=== PATIENT | female | born 1960 | race Caucasian/White ===

== ENCOUNTER → 2019-02-10 | Outpatient (CLI) | payer OTHER ==
[2019-02-10 13:35] LABS: BASOPHILS ABSOLUTE AUTO 0.03 K/mm3 (0.00-0.23); BASOPHILS PERCENT AUTO 0 % (0-2); EOSINOPHILS ABSOLUTE AUTO 0.06 K/mm3 (0.00-0.68); EOSINOPHILS PERCENT AUTO 1 % (0-6); Hematocrit 46.2 % (33.0-51.0); Hemoglobin 15.1 g/dL (11.5-16.0); IMMATURE GRAN ABSOLUTE AUTO 0.04 K/mm3 (0.00-0.10); IMMATURE GRAN PERCENT AUTO 1 % (0-1); LYMPHOCYTES ABSOLUTE AUTO 0.88 K/mm3 (0.84-5.20); LYMPHOCYTES PERCENT AUTO 10 % (21-46); MONOCYTES ABSOLUTE AUTO 0.48 K/mm3 (0.16-1.47); MONOCYTES PERCENT AUTO 6 % (4-13); Mean Corpuscular HGB 29.1 pg (26.0-34.0); Mean Corpuscular HGB Conc 32.7 g/dL (31.5-36.5); Mean Corpuscular Volume 89 fL (80-100); Mean Platelet Volume 9.8 fL (9.1-12.4); NEUTROPHILS ABSOLUTE AUTO 7.16 K/mm3 (1.96-9.15); NEUTROPHILS PERCENT AUTO 83 % (41-73); Platelet Count 238 K/mm3 (150-400); RDW Coefficient Variation 14.4 % (11.7-14.2); RDW Standard Deviation 46.5 fL (35.1-46.3); Red Blood Cell Count 5.19 M/mm3 (3.80-5.20); White Blood Cell Count 8.65 K/mm3 (4.00-11.30)
[2019-02-10 13:58] LABS: Alanine Aminotransfer (ALT/SGP 15 U/L (12-78); Albumin, Blood 3.9 g/dL (3.4-5.0); Alk Phos 93 U/L (40-126); Anion Gap 8 mmol/L (6-16); Aspartate Aminotrans (AST/SGOT 16 U/L (12-37); Bilirubin, Total 0.5 mg/dL (0.1-1.0); Blood Urea Nitrogen 15 mg/dL (8-24); Bun/Creatinine Ratio 16.1 (12.0-20.0); CO2, Blood 26 mmol/L (21-32); Calcium, Blood 9.4 mg/dL (8.5-10.1); Chloride, Blood 106 mmol/L (98-108); Creatinine, Blood 0.93 mg/dL (0.40-1.00); Globulin, Blood 3.8 g/dL (2.2-4.0); Glomerular Filtration Rate >60 (60-); Glucose, Blood 98 mg/dL (70-99); Potassium, Blood 3.9 mmol/L (3.5-5.5); Sodium, Blood 140 mmol/L (136-145); Thyroid Stimulating Hormone 1.535 uIU/mL (0.360-4.800); Total Protein, Blood 7.7 g/dL (6.4-8.2)
== END ==
LOC: LAB EV 13:27 → LAB SHORT 13:27
PROVIDERS: Family Medicine
DX: R00.2 Palpitations (principal)
CPT/HCPCS: 80053; 84443; 85025

== ENCOUNTER → 2025-02-20 | Outpatient (CLI) | payer MEDICARE | LOC: LAB 15:46 → LAB SHORT 15:46 | DX: N39.0 Urinary tract infection, site not specified (principal) | CPT/HCPCS: 87077; 87086; 87186 ==

== ENCOUNTER 2025-04-11 21:49 | Inpatient (IN) | payer MEDICARE, OTHER ==
[~2025-04-11] VITALS: Ht 162.6 cm; Wt 101.4 kg
[2025-04-11 22:45] LABS: BASOPHILS ABSOLUTE AUTO 0.03 K/mm3 (0.00-0.23); BASOPHILS PERCENT AUTO 0 % (0-2); EOSINOPHILS ABSOLUTE AUTO 0.01 K/mm3 (0.00-0.68); EOSINOPHILS PERCENT AUTO 0 % (0-6); Hematocrit 33.5 % (33.0-51.0); Hemoglobin 10.7 g/dL (11.5-16.0); IMMATURE GRAN ABSOLUTE AUTO 0.17 K/mm3 (0.00-0.10); IMMATURE GRAN PERCENT AUTO 1 % (0-1); LYMPHOCYTES ABSOLUTE AUTO 0.68 K/mm3 (0.84-5.20); LYMPHOCYTES PERCENT AUTO 4 % (21-46); MONOCYTES ABSOLUTE AUTO 0.62 K/mm3 (0.16-1.47); MONOCYTES PERCENT AUTO 3 % (4-13); Mean Corpuscular HGB Conc 31.9 g/dL (31.5-36.5); Mean Corpuscular Volume 88 fL (80-100); NEUTROPHILS ABSOLUTE AUTO 17.80 K/mm3 (1.96-9.15); NEUTROPHILS PERCENT AUTO 92 % (41-73); NRBC ABSOLUTE 0.00 K/mm3 (0.00-0.02); NRBC Auto 0.0 /100 WBC (0.0-0.2); Platelet Count 521 K/mm3 (150-400); RDW Coefficient Variation 15.0 % (11.7-14.2); RDW Standard Deviation 48.0 fL (35.1-46.3)
[2025-04-11 23:05] LABS: Alanine Aminotransfer (ALT/SGP 52.0 U/L (12-78); Albumin, Blood 2.2 g/dL (3.4-5.0); Albumin/Globulin Ratio 0.6 (0.8-1.8); Anion Gap 10.0 mmol/L (3-11); Aspartate Aminotrans (AST/SGOT 34.0 U/L (12-37); Bilirubin, Total 0.4 mg/dL (0.1-1.0); Blood Urea Nitrogen 34.0 mg/dL (8-24); CO2, Blood 22.0 mmol/L (21-32); Calcium, Blood 8.5 mg/dL (8.5-10.1); Chloride, Blood 106.0 mmol/L (98-108); Creatinine, Blood 1.04 mg/dL (0.40-1.00); Globulin, Blood 3.9 g/dL (2.2-4.0); Glucose, Blood 118.0 mg/dL (70-99); Magnesium, Blood 2.3 mg/dL (1.6-2.4); Phosphorus, Blood 2.3 mg/dL (2.5-4.9); Potassium, Blood 4.4 mmol/L (3.5-5.5); Sodium, Blood 134.0 mmol/L (136-145); Total Protein, Blood 6.1 g/dL (6.4-8.2)
[2025-04-12 00:06] LABS: Source, Urine Clean Catch
[2025-04-12 00:10] LABS: Bilirubin, Urine Neg (Neg); Glucose Qualitative, Urine Neg (Neg); Ketones, Urine Neg (Neg); Leukocyte Esterase, Urine 1+ (Neg); Protein, Urine 2+ (Neg); Specific Gravity, Urine 1.015 (1.003-1.022); Urobilinogen, Urine NORM (Normal)
[2025-04-12 00:21] LABS: Color, Urine Yellow (P-Yellow)
[2025-04-12] MEDS ORDERED: HYDROmorphone HCl/Pf 1MG SYR IV ONE (01:10)
[2025-04-12] MEDS ORDERED: Piperacillin/Tazobactam Sod 3.375 GM in NS 100 ML IV ONE (01:55)
[2025-04-12] MEDS ORDERED: Naloxone HCl 0.4MG / ML 1ML Vial IV PRN (03:00)
[2025-04-12] MEDS ORDERED: Ondansetron HCl 2 MG / ML 2ML Vial IV PRN (03:00)
[2025-04-12] MEDS ORDERED: HYDROmorphone HCl/Pf 1MG SYR IV PRN (03:00)
[2025-04-12] MEDS ORDERED: HYDROmorphone HCl/Pf 1MG SYR ONE (03:05)
[2025-04-12] MEDS ORDERED: FLU VACC TS2025(65UP)/MF59C/PF 45 MCG/0.5 ML SYRINGE IM SCH (03:10)
[2025-04-12] MEDS ORDERED: OLAN2.5 PO (04:15)
[2025-04-12] MEDS ORDERED: HYDROCODONE-AC1 EA19 PO (04:15)
[2025-04-12] MEDS ORDERED: ONDA4SO (04:15)
[2025-04-12] MEDS ORDERED: OXYC5 PO (04:15)
[2025-04-12 05:40] LABS: BASOPHILS ABSOLUTE AUTO 0.01 K/mm3 (0.00-0.23); BASOPHILS PERCENT AUTO 0 % (0-2); EOSINOPHILS ABSOLUTE AUTO 0.00 K/mm3 (0.00-0.68); EOSINOPHILS PERCENT AUTO 0 % (0-6); Hematocrit 37.4 % (33.0-51.0); Hemoglobin 11.4 g/dL (11.5-16.0); IMMATURE GRAN ABSOLUTE AUTO 0.13 K/mm3 (0.00-0.10); IMMATURE GRAN PERCENT AUTO 1 % (0-1); LYMPHOCYTES ABSOLUTE AUTO 1.00 K/mm3 (0.84-5.20); LYMPHOCYTES PERCENT AUTO 7 % (21-46); MONOCYTES ABSOLUTE AUTO 0.49 K/mm3 (0.16-1.47); MONOCYTES PERCENT AUTO 3 % (4-13); Mean Corpuscular HGB Conc 30.5 g/dL (31.5-36.5); Mean Corpuscular Volume 91 fL (80-100); NEUTROPHILS ABSOLUTE AUTO 13.21 K/mm3 (1.96-9.15); NEUTROPHILS PERCENT AUTO 89 % (41-73); NRBC ABSOLUTE 0.00 K/mm3 (0.00-0.02); NRBC Auto 0.0 /100 WBC (0.0-0.2); Platelet Count 479 K/mm3 (150-400); RDW Coefficient Variation 15.2 % (11.7-14.2); RDW Standard Deviation 51.0 fL (35.1-46.3)
[2025-04-12 05:46] VITALS: BP 135/75
--- NOTE | 2025-04-12 05:59 | NUR ---
ADMIT NOTE FOR 04/12/25 0400/SHIFT SUMMARY REPORT WAS RECEIVED FROM THE ER. PT WAS BROUGHT DOWN ON THE GURNEY AND TRANSFERRED OVER TO THE BED. SHE WAS ABLE TO AMBULATE TO THE BATHROOM. PT ALERT ORIENTED X 4 ABLE TO VERBALIZE NEEDS. CALLS APPROPRITELY. CAN AMBULATE WITH 1 PERSON SBA. C/O PAIN TO LOWER BACK MEDICATED WITH TYLENOL AND OXY WITH GOOD PAIN RELIEF. SHES JEHOVAH WITNESS AND WANTS NO BLOOD PRODUCTS. REMAINS ON LR AT 75. THERE WAS A PALLIATIVE CARE CONSULT PUT IN FOR THE PT. SHE HAS 5 LAP SITES TO HER ABDOMEN FROM A ATTEMPTED ROBOTIC HYSTERECTOMY THAT SHE HAD DONE LAST WEEK. FAMILY HERE AT BEDSIDE. SHES RESTING IN BED AT THIS TIME WITH CALL LIGHT IN REACH AND BED IN LOW POSITION.
[2025-04-12 06:11] LABS: Alanine Aminotransfer (ALT/SGP 47.0 U/L (12-78); Albumin, Blood 2.2 g/dL (3.4-5.0); Albumin/Globulin Ratio 0.6 (0.8-1.8); Anion Gap 10.0 mmol/L (3-11); Aspartate Aminotrans (AST/SGOT 29.0 U/L (12-37); Bilirubin, Total 0.6 mg/dL (0.1-1.0); Blood Urea Nitrogen 32.0 mg/dL (8-24); CO2, Blood 22.0 mmol/L (21-32); Calcium, Blood 8.8 mg/dL (8.5-10.1); Chloride, Blood 107.0 mmol/L (98-108); Creatinine, Blood 1.0 mg/dL (0.40-1.00); Globulin, Blood 3.8 g/dL (2.2-4.0); Glucose, Blood 102.0 mg/dL (70-99); Magnesium, Blood 2.3 mg/dL (1.6-2.4); Potassium, Blood 4.2 mmol/L (3.5-5.5); Sodium, Blood 135.0 mmol/L (136-145); Total Protein, Blood 6.0 g/dL (6.4-8.2)
[2025-04-12 08:27] VITALS: BP 130/79
[2025-04-12] MEDS ORDERED: Piperacillin/Tazobactam Sod 3.375 GM in NS 100 ML IV SCH (09:00)
[2025-04-12] MEDS ORDERED: Lactobacil 2-S.Thermo-Bifido 1 1 Cap PO SCH (09:00)
--- NOTE | 2025-04-12 11:19 | NUR ---
ORDER RECIEVED AND PROCESSED
[2025-04-12 12:22] VITALS: BP 152/77
--- NOTE | 2025-04-12 16:18 | NUR ---
UPDATE HOSPITALIST NOTIFIED THAT PT URINE HAD BRIGHT RED BLOOD IN IT AND THAT PT WAS CONCERNED. PT REPORTED THAT SHE HAS MORE BLOOD IN URINE THAN SHE DID PREVIOUSLY. THIS RN INSTRUCTED TO ALSO NOTIFY UROLOGIST TO SEE IF UROLOGIST WOULD BE CONCERNED AND CHANGE TIMING OF PROCEDURES. THIS RN ATTEMPTED TO CONTACT UROLOGIST.
[2025-04-12 16:30] VITALS: BP 143/77
--- NOTE | 2025-04-12 17:21 | NUR ---
UROLOGIST UPDATED ON INCREASE OF BLOOD IN URINE VIA TEXT. NO NEW ORDERS AT THIS TIME.
--- NOTE | 2025-04-12 17:42 | NUR ---
END OF SHIFT SUMMARY PT IS A/O X4, ABLE TO MAKE NEEDS KNOWN AND CAN MOVE EXTREMITIES EQUALLY AND BILATERALLY, PT IS AFEBRILE. PT REPORTED SEVERE PAIN THROUGHOUT SHIFT, MEDICATED PER EMAR. HEATING PAD APPLIED TO HELP WITH PAIN. PT IS MED NO TELE, MAP >65. HR IN THE 70'S. PT IS ON RA WITH SP02 >92%. PT CAN TOLERATE PO INTAKE WELL. PT HAD NO BM THIS SHIFT. PT IS SBA TO THE BATHROOM. LAPAROSCOPIC INCISIONS ARE C/D/I. PIV IS IN PLACE TO RAC AND R WRIST. PLAN TO BE NPO AT MIDNIGHT FOR POSSIBLE PROCEDURE. BED IN LOWEST POSITION, CALL LIGHT IN REACH, AND FAMILY AT BEDSIDE. WILL REPORT TO ONCOMING SHIFT.
[2025-04-12 19:48] VITALS: BP 139/76
[2025-04-13] VITALS (12 sets, daily range): BP systolic 90–155; BP diastolic 58–88
[2025-04-13 04:06] LABS: BASOPHILS ABSOLUTE AUTO 0.02 K/mm3 (0.00-0.23); BASOPHILS PERCENT AUTO 0 % (0-2); EOSINOPHILS ABSOLUTE AUTO 0.06 K/mm3 (0.00-0.68); EOSINOPHILS PERCENT AUTO 0 % (0-6); Hematocrit 35.3 % (33.0-51.0); Hemoglobin 11.2 g/dL (11.5-16.0); IMMATURE GRAN ABSOLUTE AUTO 0.08 K/mm3 (0.00-0.10); IMMATURE GRAN PERCENT AUTO 1 % (0-1); LYMPHOCYTES ABSOLUTE AUTO 1.33 K/mm3 (0.84-5.20); LYMPHOCYTES PERCENT AUTO 9 % (21-46); MONOCYTES ABSOLUTE AUTO 0.30 K/mm3 (0.16-1.47); MONOCYTES PERCENT AUTO 2 % (4-13); Mean Corpuscular HGB Conc 31.7 g/dL (31.5-36.5); Mean Corpuscular Volume 87 fL (80-100); NEUTROPHILS ABSOLUTE AUTO 12.87 K/mm3 (1.96-9.15); NEUTROPHILS PERCENT AUTO 88 % (41-73); NRBC ABSOLUTE 0.00 K/mm3 (0.00-0.02); NRBC Auto 0.0 /100 WBC (0.0-0.2); Platelet Count 563 K/mm3 (150-400); RDW Coefficient Variation 15.2 % (11.7-14.2); RDW Standard Deviation 48.8 fL (35.1-46.3)
[2025-04-13 04:26] LABS: Anion Gap 13.0 mmol/L (3-11); Blood Urea Nitrogen 41.0 mg/dL (8-24); CO2, Blood 19.0 mmol/L (21-32); Calcium, Blood 9.0 mg/dL (8.5-10.1); Chloride, Blood 108.0 mmol/L (98-108); Creatinine, Blood 1.78 mg/dL (0.40-1.00); Glucose, Blood 131.0 mg/dL (70-99); Potassium, Blood 4.7 mmol/L (3.5-5.5); Sodium, Blood 135.0 mmol/L (136-145)
--- NOTE | 2025-04-13 04:26 | NUR ---
SHIFT SUMMARY: PT IS A&OX4, ABLE TO VERBALIZE NEEDS AND CALLS APPROPRIATELY. C/O PAIN TO LOWER BACK AND RIGHT SIDE OF ABDOMEN. SHE REMAINS ON OXY, DILAUDID AND TYLENOL FOR PAIN CONTROL. SHE IS A MEDICAL PATIENT AND NOT ON TELEMETRY. VSS. ON RA SATTING AT 91-93%. SHE DID HAVE A SOFT BP THIS AM OF 90/58 BUT MAP IS >65. SHE DID C/O NAUSEA THIS AM. ZOFRAN WAS GIVEN WITH GOOD RELIEF. SHE REMAINS WITH PINK COLORED URINE WITH SOME BLOOD BUT NO CLOTS. REMAINS ON ZOSYN Q8HR FOR UTI. SHES BEEN NPO SINCE MIDNIGHT FOR POSSIBLE SURGERY TODAY. SHE GETS UP AND AMBULATES WITH 1 PERSON SBA. SHE IS ABLE TO TAKE MEDS WHOLE WITH WATER. BED IN LOWEST POSITION, CALL LIGHT WITHIN REACH. CALLS APPROPRIATELY AND IS ABLE TO ADVOCATE NEEDS EFFECTIVELY.
--- NOTE | 2025-04-13 15:26 | NUR ---
ROUNDED ON PATIENT. SHE WAS UNAVALIABLE DURING MY ROUNDS. REVIEWED CHART AND MEDICATIONS. PATIENTS COMFORT HAS IMPROVED PER CHARTING
[2025-04-13] MEDS ORDERED: FentaNYL Citrate 50 MCG/ML 2 ML Injection ONE ×2 (18:42→20:16)
[2025-04-13] MEDS ORDERED: Ondansetron HCl 2 MG / ML 2ML Vial ONE (18:45)
[2025-04-13] MEDS ORDERED: Dexamethasone Sod Phos 10 MG/ML 1ML VIAL ONE (18:45)
[2025-04-13] MEDS ORDERED: Ondansetron HCl 2 MG / ML 2ML Vial IV PRN (19:00)
[2025-04-13] MEDS ORDERED: FentaNYL Citrate 50 MCG/ML 2 ML Injection IV PRN ×3 (19:00→19:05)
[2025-04-13] MEDS ORDERED: Metoclopramide HCl 5MG / ML 2ML Vial IV PRN (19:05)
--- NOTE | 2025-04-13 19:18 | NUR ---
SHIFT SUMMARY PATIENT AOX4 ABLE TO MAKE NEEDS KNOWN DENIES CP AND SOB ABLE TO AMBULATE AND VOID IN THE RESTROOM. NPO FOR RENAL STENTS TODAY. PAIN TREATED PER JUL. VITALS STABLE
--- NOTE | 2025-04-13 19:40 | NUR ---
ASSUMPTION OF CARE: PT WAS TAKEN BY OR PERSONNEL FOR RENAL STENTING PROCEDURE VIA STRETCHER. PT WAS AMBULATED AND WAS ASSISTED ON TRANSFER. REPORT WAS THEN RECEIVED FROM MORNING RN.
[2025-04-13] MEDS ORDERED: Metoclopramide HCl 5MG / ML 2ML Vial ONE (20:15)
--- NOTE | 2025-04-13 20:45 | NUR ---
PT CAME BACK FROM OR VIA STRETCHER, AWAKE, COHERENT. WITH IVF OF PLR 1 LR @ KVO RATE. PT TRANSFERRED TO BED VIA 4 PERSON ASSIST. PT WAS COMPLAINING OF PAIN ON HER BACK. MIKE WAS PLACED BY SMELTER CHARGER ON DUTY. ENCOURAGED PT NOT TO HOLD URINATION IF SHE FEELS THE URGE.
[2025-04-14 03:54] VITALS: BP 150/69
[2025-04-14 04:01] LABS: BASOPHILS ABSOLUTE AUTO 0.00 K/mm3 (0.00-0.23); BASOPHILS PERCENT AUTO 0 % (0-2); EOSINOPHILS ABSOLUTE AUTO 0.00 K/mm3 (0.00-0.68); EOSINOPHILS PERCENT AUTO 0 % (0-6); Hematocrit 29.2 % (33.0-51.0); Hemoglobin 9.3 g/dL (11.5-16.0); IMMATURE GRAN ABSOLUTE AUTO 0.08 K/mm3 (0.00-0.10); IMMATURE GRAN PERCENT AUTO 1 % (0-1); LYMPHOCYTES ABSOLUTE AUTO 0.28 K/mm3 (0.84-5.20); LYMPHOCYTES PERCENT AUTO 3 % (21-46); MONOCYTES ABSOLUTE AUTO 0.04 K/mm3 (0.16-1.47); MONOCYTES PERCENT AUTO 0 % (4-13); Mean Corpuscular HGB Conc 31.8 g/dL (31.5-36.5); Mean Corpuscular Volume 87 fL (80-100); NEUTROPHILS ABSOLUTE AUTO 10.53 K/mm3 (1.96-9.15); NEUTROPHILS PERCENT AUTO 96 % (41-73); NRBC ABSOLUTE 0.00 K/mm3 (0.00-0.02); NRBC Auto 0.0 /100 WBC (0.0-0.2); Platelet Count 360 K/mm3 (150-400); RDW Coefficient Variation 15.0 % (11.7-14.2); RDW Standard Deviation 48.1 fL (35.1-46.3)
[2025-04-14 04:25] LABS: Alanine Aminotransfer (ALT/SGP 35.0 U/L (12-78); Albumin, Blood 1.9 g/dL (3.4-5.0); Albumin/Globulin Ratio 0.5 (0.8-1.8); Anion Gap 12.0 mmol/L (3-11); Aspartate Aminotrans (AST/SGOT 30.0 U/L (12-37); Bilirubin, Total 0.5 mg/dL (0.1-1.0); Blood Urea Nitrogen 52.0 mg/dL (8-24); CO2, Blood 19.0 mmol/L (21-32); Calcium, Blood 8.6 mg/dL (8.5-10.1); Chloride, Blood 109.0 mmol/L (98-108); Creatinine, Blood 2.97 mg/dL (0.40-1.00); Globulin, Blood 3.6 g/dL (2.2-4.0); Glucose, Blood 141.0 mg/dL (70-99); Magnesium, Blood 2.3 mg/dL (1.6-2.4); Potassium, Blood 5.4 mmol/L (3.5-5.5); Sodium, Blood 135.0 mmol/L (136-145); Total Protein, Blood 5.5 g/dL (6.4-8.2)
--- NOTE | 2025-04-14 06:11 | NUR ---
SHIFT SUMMARY: PT HAS BEEN COOPERATIVE AND WAS ABLE TO SLEEP DURING THE SHIFT. SHE WAS ABLE TO GET UP AND USE THE BSC WITH 1 PERSON ASSISTANCE. VITALS: SBP AT 140S-150S, HR AT 70S-80S, SATS >90% VIA ROOM AIR. PT ABLE TO CALL FOR HELP AND ASSISTANCE. WILL ENDORSE TO NEXT NURSE ON DUTY.
[2025-04-14 07:37] VITALS: BP 130/68
[2025-04-14 11:04] VITALS: BP 153/76
[2025-04-14 15:48] VITALS: BP 164/67
--- NOTE | 2025-04-14 16:07 | NUR ---
DISCUSSED CASE WITH BSRN. SYMPTOM MANAGMENT FOR PAIN IS A PRIORITY. DISCUSSED WITH DR. SOTO AND PHARMACY. DR. SOTO WILL REVIEW CHART, AND OUTPT ONCOLOGY NOTES FOR MEDICATION CHANGES THAT WOULD BE APPROPRIATE.
--- NOTE | 2025-04-14 16:40 | NUR ---
SHIFT SUMMARY: PT A/O X4, ABLE TO MAKE NEEDS KNOWN. STRENGTH EQUAL BILATERALLY, SBA TO BATHROOM. PT ENDORSES 6-8/10 PAIN IN BACK THROUGHOUT SHIFT, MEDICATED PER EMAR AND REPOSITIONED FREQUENTLY. PALLIATIVE NOTIFIED, ATTEMPTING TO REACH OUT TO ONCOLOGIST FOR FURTHER GUIDANCE. UROLOGY CAME BY THIS MORNING AND SPOKE WITH PT. PLAN TO ASSESS KINDEY FUNCTION IN THE AM AND MOVE FROM THERE. PT ON ROOM AIR, SATS >93%, DENIES SOB. NSR 90s, DENIES CHEST PAIN/PRESSURE. PT LYING IN BED, FAMILY IN ROOM, CALL IN REACH.
[2025-04-14 19:23] VITALS: BP 138/71
[2025-04-14 23:53] VITALS: BP 138/79
[2025-04-15 03:35] VITALS: BP 138/77
[2025-04-15 04:58] LABS: BASOPHILS ABSOLUTE AUTO 0.02 K/mm3 (0.00-0.23); BASOPHILS PERCENT AUTO 0 % (0-2); EOSINOPHILS ABSOLUTE AUTO 0.18 K/mm3 (0.00-0.68); EOSINOPHILS PERCENT AUTO 2 % (0-6); Hematocrit 28.2 % (33.0-51.0); Hemoglobin 8.9 g/dL (11.5-16.0); Mean Corpuscular HGB Conc 31.6 g/dL (31.5-36.5); Mean Corpuscular Volume 87 fL (80-100); NRBC ABSOLUTE 0.00 K/mm3 (0.00-0.02); NRBC Auto 0.0 /100 WBC (0.0-0.2); Platelet Count 373 K/mm3 (150-400); RDW Coefficient Variation 15.0 % (11.7-14.2); RDW Standard Deviation 48.2 fL (35.1-46.3)
--- NOTE | 2025-04-15 04:58 | NUR ---
SHIFT SUMMARY: PT ALERT AND ORIENTED X4, ABLE TO VERBALIZE CONCERNS. TELE IN PLACE. SHE WAS ABLE TO GET OUT OF BED TO USE THE TOILET WITH SOME ASSISTANCE. PT ENDORSES PAIN ON HER BACK MOST OF THE SHIFT WITH PAIN SCORE OF 7-10/10. REPOSITIONED FREQUENTLY AND MEDICATED PER EMAR. SHE ADDED THAT USING THE BSC TO DEFECATE HELPED A LITTLE BIT IN ALEVIATING THE PAIN. SHE HAS BEEN PASSING GAS TOO. DENIES CHEST PAIN/PRESSURE. AFEBRILE THE ENTIRE SHIFT. HER SON STAYED IN THE ROOM THE WHOLE SHIFT. HAND HELD CALL LIGHT KEPT WITHIN REACH. WILL ENDORSE TO NEXT NURSE ON DUTY.
[2025-04-15 05:00] LABS: IMMATURE GRAN ABSOLUTE AUTO 0.07 K/mm3 (0.00-0.10); IMMATURE GRAN PERCENT AUTO 1 % (0-1); LYMPHOCYTES ABSOLUTE AUTO 0.44 K/mm3 (0.84-5.20); LYMPHOCYTES PERCENT AUTO 4 % (21-46); MONOCYTES ABSOLUTE AUTO 0.08 K/mm3 (0.16-1.47); MONOCYTES PERCENT AUTO 1 % (4-13); NEUTROPHILS ABSOLUTE AUTO 9.49 K/mm3 (1.96-9.15); NEUTROPHILS PERCENT AUTO 92 % (41-73)
[2025-04-15 05:20] LABS: Magnesium, Blood 2.2 mg/dL (1.6-2.4)
[2025-04-15 05:21] LABS: Alanine Aminotransfer (ALT/SGP 34.0 U/L (12-78); Albumin, Blood 2.2 g/dL (3.4-5.0); Albumin/Globulin Ratio 0.6 (0.8-1.8); Anion Gap 9.0 mmol/L (3-11); Aspartate Aminotrans (AST/SGOT 25.0 U/L (12-37); Bilirubin, Total 0.4 mg/dL (0.1-1.0); Blood Urea Nitrogen 43.0 mg/dL (8-24); CO2, Blood 22.0 mmol/L (21-32); Calcium, Blood 8.3 mg/dL (8.5-10.1); Chloride, Blood 110.0 mmol/L (98-108); Creatinine, Blood 1.71 mg/dL (0.40-1.00); Globulin, Blood 3.6 g/dL (2.2-4.0); Glucose, Blood 135.0 mg/dL (70-99); Potassium, Blood 4.3 mmol/L (3.5-5.5); Sodium, Blood 137.0 mmol/L (136-145); Total Protein, Blood 5.8 g/dL (6.4-8.2)
[2025-04-15 05:33] LABS: BAND PERCENT MAN 5 % (0-8); BASOPHILS ABSOLUTE MAN 0.00 K/mm3 (0.00-0.23); BASOPHILS PERCENT MAN 0 % (0-2); EOSINOPHILS ABSOLUTE MAN 0.00 K/mm3 (0.00-0.68); EOSINOPHILS PERCENT MAN 0 % (0-6); LYMPHOCYTES ABSOLUTE MAN 0.30 K/mm3 (0.84-5.20); LYMPHOCYTES PERCENT MAN 3 % (21-46); MONOCYTES ABSOLUTE MAN 0.10 K/mm3 (0.16-1.47); MONOCYTES PERCENT MAN 1 % (4-13); NEUTROPHILS ABSOLUTE MAN 9.86 K/mm3 (1.96-9.15); SEG NEUTROPHILS PERCENT MAN 91 % (41-73)
[2025-04-15 07:10] VITALS: BP 140/76
[2025-04-15 11:06] VITALS: BP 140/66
[2025-04-15] MEDS ORDERED: Polyethylene Glycol 3350 17 gm PO PRN (11:50)
[2025-04-15] MEDS ORDERED: NS 1,000 ML IV SCH (11:55)
[2025-04-15 15:24] VITALS: BP 150/65
--- NOTE | 2025-04-15 16:08 | NUR ---
SHIFT SUMMARY: PT A/O X4, ABLE TO MAKE NEEDS KNOWN. STRENGTH EQUAL BILATERALLY. SBA TO BATHROOM. PT ENDORSES PAIN IN LOWER BACK, MEDICATING FOR PAIN PER EMAR THROUGHOUT SHIFT AND REPOSITIONED FREQUENTLY. PLAN FOR FURTHER IMAGING OF BILATERAL STENTS TOMORROW IF PAIN REMAINS PERSISTENT PER UROLOGY. PT ON ROOM AIR, SATS >93%. DENIES SOB. NSR 80s, DENIES CHEST PAIN/PRESSURE. ALL OTHER VITAL SIGNS STBALE. PT LYING IN BED, FAMILY AT BEDSIDE, CALL IN REACH.
[2025-04-15 19:20] VITALS: BP 142/72
[2025-04-15 23:05] VITALS: BP 128/63
[2025-04-16 03:17] VITALS: BP 133/68
[2025-04-16 04:26] LABS: BASOPHILS ABSOLUTE AUTO 0.03 K/mm3 (0.00-0.23); BASOPHILS PERCENT AUTO 0 % (0-2); EOSINOPHILS ABSOLUTE AUTO 0.18 K/mm3 (0.00-0.68); EOSINOPHILS PERCENT AUTO 3 % (0-6); Hematocrit 25.7 % (33.0-51.0); Hemoglobin 8.1 g/dL (11.5-16.0); IMMATURE GRAN ABSOLUTE AUTO 0.15 K/mm3 (0.00-0.10); IMMATURE GRAN PERCENT AUTO 2 % (0-1); LYMPHOCYTES ABSOLUTE AUTO 0.49 K/mm3 (0.84-5.20); LYMPHOCYTES PERCENT AUTO 7 % (21-46); MONOCYTES ABSOLUTE AUTO 0.13 K/mm3 (0.16-1.47); MONOCYTES PERCENT AUTO 2 % (4-13); Mean Corpuscular HGB Conc 31.5 g/dL (31.5-36.5); Mean Corpuscular Volume 88 fL (80-100); NEUTROPHILS ABSOLUTE AUTO 5.76 K/mm3 (1.96-9.15); NEUTROPHILS PERCENT AUTO 86 % (41-73); NRBC ABSOLUTE 0.00 K/mm3 (0.00-0.02); NRBC Auto 0.0 /100 WBC (0.0-0.2); Platelet Count 315 K/mm3 (150-400); RDW Coefficient Variation 14.8 % (11.7-14.2); RDW Standard Deviation 48.1 fL (35.1-46.3)
[2025-04-16 05:02] LABS: Magnesium, Blood 2.1 mg/dL (1.6-2.4)
[2025-04-16 05:03] LABS: Alanine Aminotransfer (ALT/SGP 30.0 U/L (12-78); Albumin, Blood 2.0 g/dL (3.4-5.0); Albumin/Globulin Ratio 0.6 (0.8-1.8); Anion Gap 10.0 mmol/L (3-11); Aspartate Aminotrans (AST/SGOT 27.0 U/L (12-37); Bilirubin, Total 0.6 mg/dL (0.1-1.0); Blood Urea Nitrogen 39.0 mg/dL (8-24); CO2, Blood 21.0 mmol/L (21-32); Calcium, Blood 8.2 mg/dL (8.5-10.1); Chloride, Blood 112.0 mmol/L (98-108); Creatinine, Blood 1.49 mg/dL (0.40-1.00); Globulin, Blood 3.6 g/dL (2.2-4.0); Glucose, Blood 116.0 mg/dL (70-99); Potassium, Blood 3.8 mmol/L (3.5-5.5); Sodium, Blood 139.0 mmol/L (136-145); Total Protein, Blood 5.6 g/dL (6.4-8.2)
--- NOTE | 2025-04-16 06:07 | NUR ---
SHIFT SUMMARY: PT WAS COOPERATIVE THE ENTIRE SHIFT. STILL WITH CONCERNS OF PAIN ON HER LUMBAR AREA WHICH WORSENS WHEN GETTING OUT OF BED. SHE ADDED THE MORPHINE DID NOT HELP THAT MUCH. PT WAS ABLE TO TOLERATE HER ORAL MEDICATIONS. IV ACCESS ON RIGHT AC AND RIGHT WRIST WERE NOTED TO BE LEAKING. RE-INSERTED ANOTHER IV C/O CHARGE NURSE ON DUTY ON HER RIGHT FOREARM. WILL ENDORSE TO NEXT RN ON DUTY.
[2025-04-16 08:02] VITALS: BP 139/70
[2025-04-16] MEDS ORDERED: DOCU100 PO (09:51)
[2025-04-16] MEDS ORDERED: MIRALAX1714 PO (09:53)
[2025-04-16] MEDS ORDERED: MORP15ER PO (09:54)
--- NOTE | 2025-04-16 10:38 | NUR ---
SUMMARY/DISCHARGE: PT A/O X4, MANAGING PAIN PER EMAR THROUGHOUT DAY. ROOM AIR, DENIES SOB. ALL VITALS SIGNS STABLE. SBA FOR SAFETY. GAVE PT DISCHARGE INSTRUCTIONS. ALL BELONGINGS WITH PT. PT GOING OUT VIA WHEELCHAIR, HOME WITH FAMILY.
--- NOTE | 2025-04-16 11:41 | NUR ---
UPDATE: DURING DISCHARGE INSTRUCTIONS, FAMILY ASKED TO STAY A LITTLE WHILE LONGER FOR PAIN MANAGEMENT. PT LYING IN BED, CALL IN REACH. FAMILY AT BEDSIDE.
--- NOTE | 2025-04-16 14:16 | NUR ---
DISCHARGE: PT LEFT VIA WHEELCHAIR WITH FAMILY AT APPROX 1415. ALL BELONGINGS WITH PATIENT.
== END 2025-04-16 14:22 | disposition home or self-care (01) | DRG 660 ==
LOC: ER 21:49 → PCU 04-12 02:57 → ERHOLD 04-12 02:57 → PCU 04-12 04:40
PROVIDERS: Family Medicine; Nurse Practitioner Acute Care; Student in an Organized Health Care Education/Training Program; Urology; ADMIT Student in an Organized Health Care Education/Training Program
PROC: 3E03329 Introduction of Other Anti-infective into Peripheral Vein, Percutaneous Approach (ICD-10-PCS; 2025-04-12)
PROC: 3E02340 Introduction of Influenza Vaccine into Muscle, Percutaneous Approach (ICD-10-PCS; 2025-04-12)
PROC: BT141ZZ Fluoroscopy of Kidneys, Ureters and Bladder using Low Osmolar Contrast (ICD-10-PCS; 2025-04-13)
PROC: 0T788DZ Dilation of Bilateral Ureters with Intraluminal Device, Via Natural or Artificial Opening Endoscopic (ICD-10-PCS; principal; 2025-04-13 18:30)
DX: N13.2 Hydronephrosis with renal and ureteral calculous obstruction (principal); L02.211 Cutaneous abscess of abdominal wall; N73.0 Acute parametritis and pelvic cellulitis; N17.9 Acute kidney failure, unspecified; C54.1 Malignant neoplasm of endometrium; E88.09 Other disorders of plasma-protein metabolism, not elsewhere classified; D75.839 Thrombocytosis, unspecified; D72.829 Elevated white blood cell count, unspecified; N18.9 Chronic kidney disease, unspecified; D63.1 Anemia in chronic kidney disease; Z90.710 Acquired absence of both cervix and uterus; Z23 Encounter for immunization
CPT/HCPCS: 36415; 74177; 76770; 80048; 80053; 81001; 82947; 83605; 83735; 84100; 85025; 87040; 87086; 94762; 96361; 96374; 99284-25; A9270; C1758; C1769; C2617; J1100; J1171; J2405; J2543; J2704; J2765; J3010; J7030; J7120; Q9967